=== PATIENT | male | born 1980 | race Caucasian/White ===

== ENCOUNTER 2016-06-27 00:55 | Emergency (ER) | payer BC ==
[~2016-06-27 00:55] MED LIST: HYCODAN PO; PERCOCET; ZITHROMAX PO
[2016-06-27] MEDS ORDERED: ADDERALL PO (01:01)
[2016-06-27 02:38] LABS: INFLUENZA A NEG (NEG); INFLUENZA B NEG (NEG)
== END 2016-06-27 02:17 | disposition home or self-care (01) ==
LOC: SED 00:55
PROVIDERS: Physician Assistant
DX: J06.9 Acute upper respiratory infection, unspecified (principal); R03.0 Elevated blood-pressure reading, without diagnosis of hypertension; F17.210 Nicotine dependence, cigarettes, uncomplicated; Z90.89 Acquired absence of other organs; Z88.5 Allergy status to narcotic agent
CPT/HCPCS: 87651; 87804; 87880; 99283